=== PATIENT | male | born 2000 | race Caucasian/White ===

== ENCOUNTER 2021-07-17 13:37 | Emergency (ER) | payer OTHER ==
[~2021-07-17] VITALS: Ht 185.4 cm; Wt 90.6 kg
--- NOTE | 2021-07-17 16:59 | REP ---
INDICATION: pain. COMPARISON: None. TECHNIQUE: Four views of the right calf are obtained. FINDINGS: Four views of the right tib fib demonstrate normal bones, joints, and soft tissues. No fracture or subluxation is seen. No opaque foreign body noted. IMPRESSION: Negative right tib fib series. <Electronically signed by Milan Rivera > 07/17/21 [id number]
[2021-07-17 17:25] VITALS: BP 126/57
== END 2021-07-17 17:27 | disposition home or self-care (01) ==
LOC: M ED 13:37
DX: M76.811 Anterior tibial syndrome, right leg (principal); M76.812 Anterior tibial syndrome, left leg; Z88.0 Allergy status to penicillin

== ENCOUNTER → 2021-09-30 | Outpatient (CLI) | payer OTHER ==
[2021-09-30 18:23] LABS: HEMOGLOBIN A1c 4.9 %
[2021-09-30 18:37] LABS: ALBUMIN 4.4 GM/DL (3.2-5.2); ALT/SGPT 36 U/L (12-78); BILIRUBIN,TOTAL 0.7 MG/DL (0.2-1.0); BLOOD UREA NITROGEN 14 MG/DL (7-18); CALCIUM LEVEL 9.9 MG/DL (8.5-10.1); CARBON DIOXIDE LEVEL 31 MEQ/L (21-32); CHLORIDE LEVEL 104 MEQ/L (98-107); CREATININE FOR GFR 1.08 MG/DL (0.70-1.30); GLOMERULAR FILTRATION RATE > 60.0 (>60); GLUCOSE, FASTING 88 MG/DL (70-100); POTASSIUM SERUM 3.9 MEQ/L (3.5-5.1); SODIUM LEVEL 141 MEQ/L (136-145); TOTAL PROTEIN 7.5 GM/DL (6.4-8.2)
== END ==
LOC: M PLALAB 15:11
PROVIDERS: ATTEND Student in an Organized Health Care Education/Training Program
DX: Z13.1 Encounter for screening for diabetes mellitus (principal); F32.A Depression, unspecified